=== PATIENT | female | born 1955 | race Caucasian/White ===

== ENCOUNTER 2017-10-30 13:57 | Outpatient (RCR) | payer OTHER ==
[2015-02-27 08:18] VITALS: Ht 165.1 cm; Wt 79.4 kg
[~2017-10-30] VITALS: Ht 165.1 cm; Wt 79.4 kg
[~2017-10-30 13:57] MED LIST: ACE3 PO; BUS5 PO; CLON0.125 PO; DIA5 PO; ESCI20TA38 PO; ESOM40CA42 PO; ESZO2TAB30 PO; HYDRO25 PO; KET10 PO; LEVO40CA PO; LORA-629 PO; LORA-798 PO; LORA10TA2 PO; LOVA20TA99 PO; LOVA40TA89 PO; NONE CURRENTLY; OMEG500C5 PO; PAROX40PT PO; PROP60CA22 PO; RAL60 PO; RAN150 PO
--- NOTE | 2017-10-30 16:38 | Medical Nutrition Therapy ---
Nutrition Anthropometrics Height (Inches): 65 (stated) Weight (Pounds): 175 (stated) BMI: 29 Piyush Nutrition Score: Piyush Nutrition Risk Score: Dietary Referral Nutrition Risk Factors: Unplanned Loss >10lbs Nutrition Risk Comment: Nutrition/Food History Breakfast: oatmeal/nuts/mary/almond milk. dried cranb or 2 eggs, WW toast Lunch: lama/bveg soup & salad or sandwich, fruit Dinner: stirfry veg with chicken, brn rice or fish, yams , veg Snacks: fruit, smoothies, nuts Nutritional Education Nutrition Education Topic: Diabetic Nutrition Learning Readiness: Eager Teaching Methods: Discussion, Handout, Demonstration Response to Teaching: Verbalize understanding Teaching Recipient: Patient Nutrition Counseling: Pt was very conscience of eating healthy with mostly organic foods withiout additives. Typical day consisted of mostly low GI CHO however pt did say she consumed "a lot" of fresh fruit. Reviewed CHO counting and showed portion sizes of foods in particular fruits. Provided meal plan of 30-45gm CHO/meal with unlimited non-starchy vegwith lean meats and healthy fats. Pt set behavioral goal of increased exercise and limiting portion size. Pt scheduled for diabetes classess, 11/19 and 11/26. Nutrition Monitoring & Eval RD Patient Assessment Time: [address] Assessment Type: RD Education Nutritional Comment: Provided 90 minute diabetes educatin focusing on action on medication with hypoglycemic rx and gluidllines reviewed, nutritrion, behavorual goals, and support plan. Copies To Copies to: ELENA ALSTON BETH October 30, 2017 16:38
--- NOTE | 2017-11-19 17:28 | Medical Nutrition Therapy ---
Nutrition Anthropometrics Height (Inches): 65 (stated) Weight (Pounds): 175 (stated) BMI: 29 Piyush Nutrition Score: Piyush Nutrition Risk Score: Dietary Referral Nutrition Risk Factors: Unplanned Loss >10lbs Nutrition Risk Comment: Physical Findings Physical Appearance: Overweight BMI 25-29 Skin Appearance Skin Appearance: Edema Edema Location Modifier: Edema Location: Type of Edema: Degree of Edema: Gastrointestinal Symptoms GI Symtoms: Tube Present: Bowel Sounds: Recent Bowel Pattern: Stool Characteristics: Nutritional Education Nutrition Education Topic: Other Learning Barriers: Emotional Learning Readiness: Eager, Interested Teaching Methods: Discussion, Handout, Audiovisual Response to Teaching: Verbalize understanding Teaching Recipient: Patient Nutrition Monitoring & Eval RD Patient Assessment Time: [address] Assessment Type: RD Education Nutritional Comment: Provided 90 minute diabetes educatin focusing on action on medication with hypoglycemic rx and gluidllines reviewed, nutritrion, behavorual goals, and support plan. 11/19/17 Pt states she has prediabetes. Pt instructed on Living with Diabetes topics including foot care, jail complications, exercise, hypoglycemia, sick day care, etc. Pt appears interested in diabetes topics and able to answer questions regarding topics covered. I personally spent a total of 90 minutes educating/counseling patient regarding diabetes self-management in a group setting. See education section and my note above for details. Copies To Copies to: ELENA ALSTON DIANNE Nov 19, 2017 17:28
--- NOTE | 2017-11-27 08:06 | Medical Nutrition Therapy ---
Nutritional Education Nutrition Education Topic: Diabetic Nutrition Learning Readiness: Interested Teaching Methods: Discussion, Handout, Demonstration Response to Teaching: Verbalize understanding Teaching Recipient: Patient Nutrition Counseling: Provided group diabetes education on nutrition. Reviewed: process of digestion; function of CHO, protein and fat; glycemic index; reading labels, portion sizes; heart healthy intake; eating out, alcohol. Nutrition Monitoring & Eval RD Patient Assessment Time: [address] Assessment Type: RD Education Nutritional Comment: Provide 60 min diabetes education in group setting focusing on nutrition. Copies To Copies to: ELENA ALSTON BETH Nov 27, 2017 08:06
== END 2017-12-04 ==
LOC: DIET 13:57
PROVIDERS: ATTEND Nurse Practitioner Family
DX: Z71.3 Dietary counseling and surveillance (principal); E11.9 Type 2 diabetes mellitus without complications; E78.5 Hyperlipidemia, unspecified; Z68.29 Body mass index [BMI] 29.0-29.9, adult
CPT/HCPCS: G0108; G0109

== ENCOUNTER → 2018-01-20 | Outpatient (CLI) | payer OTHER ==
[2015-02-27 08:18] VITALS: BMI 26.6
--- NOTE | 2018-01-20 14:48 | RADIOLOGY IMAGING REPORT ---
FACILITY: [facility] PATIENT NAME: FRANCHESCA HERRING : [id number] MR: [id number] V: [id number] EXAM DATE: [id number] ORDERING PHYSICIAN: ELENA ALSTON TECHNOLOGIST: Lyly Gilman PROCEDURE:BILATERAL DIGITAL SCREENING MAMMOGRAM WITH CAD ASSISTED INTERPRETATION & 3D TOMOSYNTHESIS COMPARISON:Prior mammograms 11/29/16, 11/16/15, 05/27/14, 05/26/13, 05/25/12, 05/15/11. INDICATIONS:SCREENING FINDINGS: Moderately heterogeneous fibroglandular tissue is seen throughout the breasts. The parenchymal pattern has remained stable allowing for difference in mammographic technique & patient positioning. There is no evidence of malignant appearing mass, malignant appearing calcifications or other secondary sign of malignancy in either breast. DIAGNOSTIC CATEGORY 1--NEGATIVE. RECOMMENDATIONS: ROUTINE MAMMOGRAM AND CLINICAL EVALUATION. IMPRESSION: BIRADS 1: Negative. No significant abnormality is seen. Dictated by: Brooklynn Montes M.D. on 01/20/2018 at 14:42 Transcribed by: YADIRA on 01/20/2018 at 14:45 Approved by: Brooklynn Montes M.D. on 01/20/2018 at 14:46 [facility]
== END ==
LOC: MAMO 01:28
PROVIDERS: ATTEND Nurse Practitioner Family
DX: Z12.31 Encounter for screening mammogram for malignant neoplasm of breast (principal)
CPT/HCPCS: 77063; 77067